=== PATIENT | male | born 1990 | race Asian ===

== ENCOUNTER 2018-09-03 13:22 | Emergency (ER) | payer OTHER ==
[~2018-09-03] VITALS: Ht 167.6 cm; Wt 93.8 kg
[2018-09-03 13:57] LABS: BASOPHILS # (AUTO) 0.02 x10^3/uL (0-0.1); BASOPHILS % (AUTO) 0 % (0-1); EOSINOPHILS # (AUTO) 0.06 x10^3/uL (0-0.4); EOSINOPHILS % (AUTO) 1 % (1-7); LYMPHOCYTES # (AUTO) 1.95 x10^3/uL (1-3.4); LYMPHOCYTES % (AUTO) 29 % (22-44); MD NO; MEAN CORPUSCULAR HEMOGLOBIN 29.8 pg (27.5-34.5); MEAN CORPUSCULAR HGB CONC 33.8 g/dL (33.2-36.2); MEAN CORPUSCULAR VOLUME 88.2 fL (81-97); MONOCYTES # (AUTO) 0.47 x10^3/uL (0.2-0.8); MONOCYTES % (AUTO) 7 % (2-9); NEUTROPHILS # (AUTO) 4.22 x10^3/uL (1.8-6.8); NEUTROPHILS % (AUTO) 63 % (42-75); PLATELET COUNT 286 x10^3/uL (130-400); RED CELL DISTRIBUTION WIDTH 12.5 % (9.4-14.8)
--- NOTE | 2018-09-03 13:57 | NUR ---
FIRST CONTACT WITH PT. TASK RN: Pt presents to ED with c/o chest pain. Pt states, "sometimes I have this and it last jhust a few seconds. It comes and goes. 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 Pt is AOX4. Pt denies n/v/d, sob, or trauma.
--- NOTE | 2018-09-03 14:02 | NUR ---
TASK RN: Pt states, " I have had this chest discomfort for a few weeks. It is worse at night and makes it hard to sleep. It is better in the morning and gets worse throughout the day." Pt denies radiation of pain. Pt states it is a "dull and sometimes stabbing pain" in center of chest. 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 Bedrails up for [id number] measures. call light within reach. NADN. No needs expressed.
[2018-09-03 14:04] LABS: ALANINE AMINOTRANSFERASE 92 U/L (12-78); ALBUMIN 4.7 g/dL (3.4-5.0); ANION GAP 8 mmol/L (5-15); CHLORIDE 106 mmol/L (98-107); CREATININE 1.16 mg/dL (0.7-1.3)
[2018-09-03 14:08] LABS: ALKALINE PHOSPHATASE 102 U/L (45-117); BILIRUBIN,TOTAL 0.7 mg/dL (0.2-1.0); TOTAL PROTEIN 8.6 g/dL (6.4-8.2); TROPONIN I < 0.015 ng/mL (0.000-0.045)
[2018-09-03 16:22] VITALS: BP 134/72
--- NOTE | 2018-09-03 16:22 | NUR ---
PT DISCHARGED WITH DISCHARGE INSTRUCTIONS AND FOLLOW UP. PT UP AMBULATORY AND STABLE ON FEET.
== END 2018-09-03 16:24 | disposition home or self-care (01) ==
LOC: ED 14:14
DX: R07.89 Other chest pain (principal)
CPT/HCPCS: 36415; 71046; 80053; 84484; 85025; 85379; 93005; 99284

== ENCOUNTER 2018-11-30 22:06 | Emergency (ER) | payer OTHER ==
[~2018-11-30] VITALS: Ht 167.6 cm; Wt 94.0 kg
[2018-11-30 23:49] VITALS: BP 114/80
== END 2018-11-30 23:51 | disposition home or self-care (01) ==
LOC: ED 22:34
DX: R10.84 Generalized abdominal pain (principal)
CPT/HCPCS: 36415; 80053; 81003; 85025; 99283

== ENCOUNTER 2019-07-23 14:45 | Emergency (ER) | payer OTHER ==
[~2019-07-23] VITALS: Ht 167.6 cm; Wt 101.8 kg
[~2019-07-23 14:45] MED LIST: BLOOD PRESSURE MED
[2019-07-23] MEDS ORDERED: SODIUM CHLORIDE FLUSH 10ML SYR IVF ONE (15:00)
[2019-07-23] MEDS ORDERED: ASPIRIN 81 MG TABLET CHEW PO ONE (15:00)
[2019-07-23 15:22] LABS: BASOPHILS # (AUTO) 0.02 x10^3/uL (0-0.1); BASOPHILS % (AUTO) 0 % (0-1); EOSINOPHILS # (AUTO) 0.05 x10^3/uL (0-0.4); EOSINOPHILS % (AUTO) 1 % (1-7); LYMPHOCYTES # (AUTO) 1.73 x10^3/uL (1-3.4); LYMPHOCYTES % (AUTO) 28 % (22-44); MD NO; MEAN CORPUSCULAR HEMOGLOBIN 29.6 pg (27.5-34.5); MEAN CORPUSCULAR HGB CONC 33.3 g/dL (33.2-36.2); MEAN CORPUSCULAR VOLUME 88.9 fL (81-97); MONOCYTES # (AUTO) 0.49 x10^3/uL (0.2-0.8); MONOCYTES % (AUTO) 8 % (2-9); NEUTROPHILS # (AUTO) 3.96 x10^3/uL (1.8-6.8); NEUTROPHILS % (AUTO) 63 % (42-75); PLATELET COUNT 252 x10^3/uL (130-400); RED BLOOD COUNT 5.42 x10^6/uL (4.38-5.82); RED CELL DISTRIBUTION WIDTH 12.5 % (9.4-14.8)
--- NOTE | 2019-07-23 15:32 | NUR ---
CLIP WRAPPER: PT WALKED BACK FROM LOBBY TO ROOM AT THIS TIME.
[2019-07-23 15:38] LABS: ALANINE AMINOTRANSFERASE 100 U/L (12-78); ANION GAP 9 mmol/L (5-15); CALCIUM 8.9 mg/dL (8.5-10.1); CHLORIDE 106 mmol/L (98-107); CREATININE 1.22 mg/dL (0.7-1.3)
[2019-07-23 15:42] LABS: ALKALINE PHOSPHATASE 101 U/L (45-117); BILIRUBIN,TOTAL 0.8 mg/dL (0.2-1.0); TOTAL PROTEIN 8.1 g/dL (6.4-8.2); TROPONIN I < 0.015 ng/mL (0.000-0.045)
--- NOTE | 2019-07-23 15:49 | NUR ---
FIRST CONTACT WITH PT. PT C/O INTERMITTANT CHEST PAIN X 2 DAYS; NONE AT THIS TIME. HX OF ANXIETY. TOOK 75 SERTRALINE AROUND NOON TODAY. PT'S AOX4. RESPS EVEN AND UNLABORED. ALL MONITORS IN PLACE. CALL LIGHT WITHIN REACH.
[2019-07-23] MEDS ORDERED: ASPIRIN 81 MG TABLET CHEW ONE (15:54)
--- NOTE | 2019-07-23 15:57 | NUR ---
PT MEDICATED PER EMAR. PT TOLERATED WELL.
[2019-07-23 17:01] VITALS: BP 151/96
--- NOTE | 2019-07-23 17:05 | NUR ---
Patient given discharge instructions and they have confirmed that they understand the instructions. Patient ambulatory with steady gait.
== END 2019-07-23 17:06 | disposition home or self-care (01) ==
LOC: ED 17:00
DX: F41.1 Generalized anxiety disorder (principal); I44.5 Left posterior fascicular block; R00.0 Tachycardia, unspecified; R94.31 Abnormal electrocardiogram [ECG] [EKG]
CPT/HCPCS: 36415; 71045; 80053; 84484; 85025; 93005; 99285